=== PATIENT | male | born 1990 | race African-American/Black ===

== ENCOUNTER 2017-07-14 23:10 | Emergency (ER) | payer SELFPAY ==
[~2017-07-14] VITALS: Ht 188 cm; Wt 88.0 kg
[2017-07-14 23:10] VITALS: BP 145/85; PULSE 105; RESP 16; TEMP 99.6; O2SAT 97
--- NOTE | 2017-07-15 01:42 | PD ---
HPI Chief Complaint: Skin Problem Time Seen by Provider: 01:35 Travel History International Travel<30 days: No Contact w/Intl Traveler<30days: No Traveled to known affect area: No History of Present Illness HPI Patient is a 27-year-old otherwise healthy male presents emergency department for evaluation of 2 abscesses on the right forearm. Patient states she's going on for the past few days, gradually worsening. Denies IV drug abuse denies a history of diabetes. 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 Denies any fevers chest pain shortness of breath abdominal pain. Symptoms for the past few days, gradually worsening, right forearm, context as above. PFSH Past Medical History Medical History: Denies Significant Hx Diminished Hearing: No Tetanus Vaccination: < 5 Years Past Surgical History Surgical History: No Previous Surgery Social History Alcohol Use: No Tobacco Use: No Substance Use: No Allergies-Medications (Allergen,Severity, Reaction): Coded Allergies: No Known Allergies (Unverified , 07/14/17) Reported Meds & Prescriptions Reported Meds & Active Scripts Active [place] (Hydrocodone-Acetaminophen) 5 Mg-325 Mg Tab 1 Tab PO Q6H PRN Bactrim DS (Sulfamethoxazole-Trimethoprim) 800-160 Mg Tab 1 Tab PO BID Review of Systems Except as stated in HPI: all other systems reviewed are Neg Physical Exam Narrative GENERAL: Well-nourished, well-developed patient. SKIN: Focused skin assessment warm/dry. There is a small abscess over the proximal volar aspect of the right forearm, very small, actively draining. Patient also has an abscess over the ulnar aspect of the distal forearm on the volar aspect. This one is starting to come to ahead but has significant fluctuance which will require drainage. No lymphadenitis lymphangina. HEAD: Normocephalic. EYES: No scleral icterus. No injection or drainage. NECK: Supple, trachea midline. No JVD or lymphadenopathy. CARDIOVASCULAR: Regular rate and rhythm without murmurs, gallops, or rubs. RESPIRATORY: Breath sounds equal bilaterally. No accessory muscle use. GASTROINTESTINAL: Abdomen soft, non-tender, nondistended. MUSCULOSKELETAL: No cyanosis, or edema. BACK: Nontender without obvious deformity. No CVA tenderness. Data Data Last Documented VS Vital Signs Date Time Temp Pulse Resp B/P (MAP) Pulse Ox O2 Delivery O2 Flow Rate FiO2 07/15/17 03:13 07/15/17 01:57 99.2 78 14 100 Room Air Orders Orders Sulfamet-Trimeth Ds 800-160 Mg (Bactrim (07/15/17 01:45) Lidocaine 1% Inj (Xylocaine 1% Inj) (07/15/17 01:45) Acetamin-Hydrocod 325-5 Mg ([place] 5-325 (07/15/17 03:00) Ed Discharge Order (07/15/17 03:07) [facility] Medical Decision Making Medical Screen Exam Complete: Yes Emergency Medical Condition: Yes Differential Diagnosis Abscess, cellulitis, sepsis unlikely. Narrative Course Patient roomed emerged department, incision and drainage performed tolerated well by patient minimal bleeding after the fact, pressure dressing was applied controlled the bleeding, there is no pulsatile bleeding and no expanding hematoma. A she is stable for discharge, discussed return to ED criteria. He stable for discharge. Procedures Procedure Narrative INCISION AND DRAINAGE OF ABSCESS: The area was prepped and was sterilely draped. A subcutaneous wheal of 1% % Xylocaine plain with a total number mL was used to anesthetize the area properly. A number 11 scalpel was used to make a 0.5] -cm incision across the area of the abscess. The abscess was drained, complex loculations were broken down with blunt dissection, and irrigated with normal saline. The patient on blunt dissection did have some bleeding, total blood loss 10 cc or less. His venous oozing. A pressure dressing was applied, patient had brisk capillary refill in all digits, ulnar pulse was able to be palpated. Radial pulse was palpated as well. Reassessment after the fact of the bleeding was well-controlled. Diagnosis Primary Impression: Abscess Patient Instructions: Abscess Incision and Drainage (DC), General Instructions Med/Other Pt SpecificInfo: Prescription(s) given Scripts Hydrocodone-Acetaminophen ([place]) 5 Mg-325 Mg Tab 1 TAB PO Q6H Y for PAIN, #10 TAB 0 Refills Prov: Orville Banda MD 07/15/17 Sulfamethoxazole-Trimethoprim (Bactrim DS) 800-160 Mg Tab 1 TAB PO BID for Infection, #14 TAB 0 Refills Prov: Orville Banda MD 07/15/17 Disposition: 01 DISCHARGE HOME Condition: Stable Orville Banda MD Jul 15, 2017 01:42
[2017-07-15] MEDS ORDERED: LIDOCAINE HCL 1% 30 ML VIAL INFIL ONE (01:45)
[2017-07-15] MEDS ORDERED: SULFAMETHOXAZOLE-TRIMETHOPRIM DS 800-160 MG TAB PO ONE (01:45)
[2017-07-15 01:57] VITALS: BP 132/87; PULSE 78; RESP 14; TEMP 99.2; O2SAT 100
[2017-07-15] MEDS ORDERED: ACETAMINOPHEN/HYDROcodone 325 MG/5 MG TAB PO ONE (03:00)
[2017-07-15] MEDS ORDERED: NORC5TAB PO (03:07)
[2017-07-15] MEDS ORDERED: BACT800T5 PO (03:07)
== END 2017-07-15 03:17 | disposition home or self-care (01) ==
LOC: NEPE 23:10
DX: L02.413 Cutaneous abscess of right upper limb (principal)
CPT/HCPCS: 10060